=== PATIENT | female | born 1985 | race Caucasian/White ===

== ENCOUNTER 2016-09-22 11:15 | Emergency (ER) | payer OTHER ==
--- NOTE | 2016-09-22 13:59 | ED ORDER SUMMARY ---
..... Patient: GARLAND FLETCHER OrderSheet [facility] VisitID: [id number] [address] [place] [address] 30y, F Registration Date/Time: 09/22/2016 ORDER SHEET Weight: 85.7 kg (stated) Allergies: No Known Drug Allergy GENERAL ORDERS: CBC w Diff Urgent (11:55 09/22/2016 DDean R.N. per protocol) (Ack 11:57 Melodie) (12:15 DDean R.N.) BMP Urgent (11:55 09/22/2016 DDean R.N. per protocol) (Ack 11:57 Melodie) (12:01 Arnold WILSON) (Cancelled: Other12:01 Arnold WILSON) PT with INR Urgent (11:55 09/22/2016 DDean R.N. per protocol) (Ack 11:57 Melodie) (12:15 DDean R.N.) CMP Urgent (12:09/22/2016 Arnold WILSON) (Ack 12:22 Melodie) (12:24 DDean R.N.) PTT Urgent (12:09/22/2016 Arnold WILSON) (Ack 12:22 Melodie) (12:24 DDean R.N.) US Venous Left (She is 5 days ) Urgent (12:11 09/22/2016 Arnold WILSON) (Ack 12:22 Melodie) (13:43 DDean R.N.) MEDICATION ORDERS: IV FLUIDS: IV Saline Lock (11:55 09/22/2016 DDean R.N. per protocol) (11:55 DDean R.N.) ORDER SHEET NOTES: [Electronically signed by Nivia Bolden R.N. (15:15 09/22/2016)] [Electronically signed by Kevin Marin MD (17:09 09/23/2016)] [Electronically locked/signed by Nivia Bolden R.N. (15:15 09/22/2016)]
--- NOTE | 2016-09-22 13:59 | ED ORDER SUMMARY ---
..... Patient: GARLAND FLETCHER OrderSheet [facility] VisitID: [id number] [address] [place] [address] 30y, F Registration Date/Time: 09/22/2016 ORDER SHEET Weight: 85.7 kg (stated) Allergies: No Known Drug Allergy GENERAL ORDERS: CBC w Diff Urgent (11:55 09/22/2016 DDean R.N. per protocol) (Ack 11:57 Melodie) (12:15 DDean R.N.) BMP Urgent (11:55 09/22/2016 DDean R.N. per protocol) (Ack 11:57 Melodie) (12:01 Arnold WILSON) (Cancelled: Other12:01 Arnold WILSON) PT with INR Urgent (11:55 09/22/2016 DDean R.N. per protocol) (Ack 11:57 Melodie) (12:15 DDean R.N.) CMP Urgent (12:09/22/2016 Arnold WILSON) (Ack 12:22 Melodie) (12:24 DDean R.N.) PTT Urgent (12:09/22/2016 Arnold WILOSN) (Ack 12:22 Melodie) (12:24 DDean R.N.) US Venous Left (She is 5 days ) Urgent (12:11 09/22/2016 Arnold WILSON) (Ack 12:22 Melodie) (13:43 DDean R.N.) MEDICATION ORDERS: IV FLUIDS: IV Saline Lock (11:55 09/22/2016 DDean R.N. per protocol) (11:55 DDean R.N.) ORDER SHEET NOTES: [Electronically signed by Nivia Bolden R.N. (15:15 09/22/2016)] [Electronically signed by Kevin Marin MD (17:09 09/23/2016)] [Electronically locked/signed by Nivia Bolden R.N. (15:15 09/22/2016)]
--- NOTE | 2016-09-22 13:59 | ED NURSING NOTES ---
Clinical Report - Nurses [facility] [place] [address] 09/22/2016 11:17 Patient: GARLAND FLETCHER TRIAGE Triage time 1122. Acuity: LEVEL 3. Chief Complaint: LEFT LOWER EXTREMITY PAIN and SWELLING. --11:36 Nivia Bolden R.N. 11:22 09/22/16. BP: 139/90. HR: 97. RR: 20. O2 saturation: 97%. Temp: 97.6 F. Pain level now: 11/26. --11:36 Nivia Bolden R.N. Triage time 1122. Chief Complaint: Location of symptoms- (Pt is 6 days pst-). --11:57 Nivia Bolden R.N. Weight: 85.7 kg stated. Height/Length: 64 inches Per Patient. BMI: 32.5. --11:33 Nivia Bolden R.N. Medications Ibuprofen Oral 800 mg, PRN, last dose 0900. Vitamins Oral. --11:33 Nivia Bolden R.N. Allergies No Known Drug Allergy. --11:32 Nivia Bolden R.N. History Arrived by private vehicle. Historian: patient. Accompanied by (brother in law). Primary physician ([facility]). No injury occurred. This occurred yesterday. She has had swelling and trouble walking. PAST MEDICAL HX: Negative. Last normal menstrual period- 6 days post- . 3. Para 3. Abortions 0. SURGERY HX: No history of previous surgery. SOCIAL HX: Never smoker. No alcohol use or drug use. --11:36 Nivia Bolden R.N. ( pt also states that she had chills this am). --11:54 Nivia Bolden R.N. ( also c/o swelling to hands and feel x 3 weeks). --11:57 Nivia Bolden R.N. PROBLEMS: no known problems. ADDITIONAL SURGERIES: no known surgeries. Interventions ID band on patient. To treatment room. --11:36 Nivia Bolden R.N. PHYSICAL ASSESSMENT 11:22. Ambulatory to room. Patient gowned. GENERAL / NEURO / PSYCH: Oriented X 4. Appears in no acute distress. Appears anxious. EXTREMITIES: Left knee: tenderness and swelling. Left leg. SKIN: Skin is warm and dry. --11:37 Nivia Bolden R.N. NURSING PROGRESS NOTES 11:22. Patient gowned. Reassurance given. Patient identifiers checked. Call light placed in reach. Side rails up. Bed placed in lowest position. Patient ready for evaluation- chart flagged. --11:36 Nivia Bolden R.N. 11:45 09/22/2016 Site #1 started via IV in the right hand with an 22g angiocath, with aseptic technique and good blood return; one attempt. Blood drawn: rainbow set. Labeled in the presence of the patient and sent to the lab. Saline lock flushed with saline. --11:53 Nivia Bolden R.N. 12:30 US at bedside to do exam. --13:44 Nivia Bolden R.N. 13:15 attempting to locate PCP name and number foe ERMD contact. --13:46 Nivia Bolden R.N. ( Scheduled appt. for pt. on September 29 at 0245 at [facility] --14:00 Asya Rizzo, ALEXANDR Tech1 14:05 09/22/2016 Site #1 removed upon discharge. Bandaid applied. --14:13 Nivia Bolden R.N. 14:05 09/22/2016 IV Saline Lock Drip IV Discontinued: bag #1 STOPPED upon discharge. Total amount infused: 0 mL. IV patency established. IV site checked: no pain, redness, or swelling. IV flushed thoroughly. --14:13 Nivia Bolden R.N. DISPOSITION / DISCHARGE Condition at departure: stable. Ability to learn limited by language barrier. Discharge instructions provided and reviewed with the patient. Reviewed medication(s) (motrin, tylneol #3). Reviewed referrals (aappt at Dr. office next thursday at 2:45). Patient and ada accommodation consultant verbalized understanding. Written instructions provided in Samoan and Serbian. The patient was discharged home and accompanied by family. She left the Emergency Department ambulatory and via private vehicle. Family member driving. --14:12 Nivia Bolden R.N. 14:10 09/22/16. BP: 122/78. HR: 74. RR: 18. O2 saturation: 97%. Temp: deferred. Pain level now: 11/26. --14:12 Nivia Bolden R.N. Locked/Released at 09/22/2016 15:15 by Nivia Bolden R.N.
--- NOTE | 2016-09-22 13:59 | ED CLINICAL REPORT ---
Clinical Report - Physicians/Mid Levels [facility] [address] [place] [address] 09/22/2016 11:17 Patient: GARLAND FLETCHER Time Seen: 12:00. Arrived- By private vehicle. Historian- patient (She is Grenadian-speaking only. She is accompanied by her [id number] who is fluent in Nauruan and Grenadian. She does not want a phone traffic signal mechanic, she would prefer to have him translate). HISTORY OF PRESENT ILLNESS Chief Complaint: LOWER EXTREMITY PAIN and SWELLING. This started yesterday and is still present. It was abrupt in onset and has been constant. Severity is described as being moderate. The quality is noted to be aching and "pain". Symptoms located in the area of the left thigh. The patient has had mild redness with red streaking. She has had swelling. She has had difficulty walking. ( the patient is a 6 days after a normal spontaneous vaginal delivery. She is breast-feeding.). Patient denies an injury. Similar symptoms previously: None. REVIEW OF SYSTEMS No chills, fever, sweats, calf pain or chest pain. No cough, difficulty breathing, pedal edema, palpitations or abdominal pain. No constipation, diarrhea, nausea, vomiting or urinary problems. All systems otherwise negative, except as recorded above. PAST HISTORY Problems: no known problems. Additional Surgeries: no known surgeries. Medications: Ibuprofen Oral 800 mg, PRN, last dose 0900. Vitamins Oral. Allergies: No Known Drug Allergy. SOCIAL HISTORY Never smoker. No alcohol use or drug use. She lives with spouse. Has good social support. FAMILY HISTORY no family history of pulmonary embolism, DVT or other clotting disorders. ADDITIONAL NOTES The nursing notes have been reviewed. PHYSICAL EXAM Vital Signs: 09/22/2016 11:22 BP: 139/90. HR: 97. RR: 20. O2 saturation: 97%. Temp: 97.6 F. Pain level now: 5/10. Have been reviewed. Appearance: Alert. No acute distress. Eyes: Pupils equal, round and reactive to light. ENT: Pharynx normal. Neck: Normal inspection. Neck supple. CVS: Normal heart rate and rhythm. Heart sounds normal. Respiratory: No respiratory distress. Breath sounds normal. Abdomen: Soft and nontender. No organomegaly. Back: Normal inspection. No CVA tenderness. Skin: Skin intact. Skin warm and dry. Extremities: No upper extremity edema. Left thigh: mild erythema and moderate tenderness. Neurovascular intact distally. No signs of infection involving the lower extremities. No calf tenderness. Neuro: No motor deficit. No sensory deficit. LABS, X-RAYS, AND EKG Lower Extremity Sonography: Lower extremity venous Doppler of the left leg revealed superficial thrombus phlebitis in the mid thigh down to the mid calf. This is 15 cm away from the saphenousfemoral junction. There is no evidence of any deep vein thrombosis. The exam was performed by a nutrition technician. The study was independently viewed by me. I discussed the study with the dental technician apprentice. Laboratory Tests: CBC w Diff: (LEYDA: 09/22/2016 11:45) ( [facility] 09/22/2016 12:05) Final results Test Result Flag Units (Reference) WHITE BLOOD COUNT 11.8 H K/uL (4.5-11.5) RED BLOOD COUNT 3.84 L M/uL (4.00-5.20) HEMOGLOBIN 12.1 gm/dL (12.0-16.0) HEMATOCRIT 35.9 L % (36.0-46.0) MEAN CELL VOLUME 94 fL (80-100) MEAN CORPUSCULAR HGB 32 pg (26-34) MEAN CORPUSCULAR HGB CONC 34 g/dL (31-37) RED CELL DISTRIBUTION WIDTH 14.6 % (11.6-14.8) PLATELET COUNT 362 K/uL (150-400) NEUTROPHIL % 71.1 % (50-75) LYMPH % 21.3 L % (25-40) MONO % 5.7 % (3-14) EOSINOPHIL % 1.5 % (0-4) BASOPHIL % 0.4 % (0-2) PT with INR: (LEYDA: 09/22/2016 11:45) ( [facility] 09/22/2016 12:13) Final results Test Result Flag Units (Reference) INR 0.9 (0.8-1.2) Low Intensity Therapy: INR 1.5-2.0 PT range 18.5-23.1Mod.Intensity Therapy: INR 2.0-3.0 PT range 23.1-31.5High Intensity Therapy: INR 2.5-3.5 PT range 27.4-35.5High Intensity Therapy 2: INR 3.0-4.0 PT range 31.5-39.3 APTT 29 SECONDS (24-34) CMP: (LEYDA: 09/22/2016 11:45) ( Msg[facility]cvd 09/22/2016 12:40) Final results Test Result Flag Units (Reference) GLUCOSE 81 mg/dL (70-110) BUN 14 mg/dL (7-18) CREATININE 0.6 mg/dL (0.6-1.3) Estimated GFR >60 mL/min Estimated GFR- >60 mL/min Note: Persistent reduction over 3 months in eGFR<60 mL/min/1.73 m2 defines CKD. Patients with eGFR values>=60 mL/min/1.73 m2 may also have CKD if evidence ofpersistent proteinuria. Additional information may be foundat www.kidney.org. SODIUM 141 mmol/L (136-145) POTASSIUM 4.0 mmol/L (3.5-5.1) CHLORIDE 107 mmol/L (98-107) CARBON DIOXIDE 25 mmol/L (21-32) CALCIUM 9.1 mg/dL (8.5-10.1) TOTAL PROTEIN 7.3 g/dL (6.4-8.2) ALBUMIN 2.6 L g/dL (3.3-5.0) BILIRUBIN, TOTAL 0.3 mg/dL (0.0-1.0) ALKALINE PHOSPHATASE 714 H U/L (46-116) AST (SGOT) 69 H U/L (15-37) ALT (SGPT) 73 U/L (12-78) . PROGRESS AND PROCEDURES Course of Care: Patient is stable. Discussed case with on-call health care provider, (Emerita at [facility] in [place]). Reviewed test results and need for additional work-up. Agreed upon treatment plan. Health care provider will see patient in office. Patient/family counseled. Old medical records ordered. Old records unavailable. Disposition: Discharged. Condition: stable. CLINICAL IMPRESSION Superficial thrombophlebitis of the left leg associated with the puerperium. INSTRUCTIONS Elevate affected areas above chest level until better. No driving or operating machinery while taking sedating medication. (try to walk as much as possible You have an appointment scheduled at the [facility] in [place] on September 29 at 2:45 PM). Warnings: Further evaluation is necessary. GENERAL WARNINGS: Return or contact your physician immediately if your condition worsens or changes unexpectedly, if not improving as expected, or if other problems arise. Your Current Medications: CONTINUE TAKING THE FOLLOWING MEDICATIONS: Ibuprofen Oral : 800 mg PRN, Last: 0900. Vitamins Oral. Prescription Medications: Tylenol with Codeine #3 (30 mg / 300 mg): take 1 tablet every 4 hours as needed for pain. Dispense fifteen (15). No refills. Substitution is permissible. Understanding of the discharge instructions verbalized by patient and family. Follow-up with: [facility], , , [address] [place] [address], Follow up as scheduled. (Electronically signed by Kevin Marin MD 09/23/2016 17:09)
--- NOTE | 2016-09-22 13:59 | ED NURSING NOTES ---
Clinical Report - Nurses [facility] [place] [address] 09/22/2016 11:17 Patient: GARLAND FLETCHER TRIAGE Triage time 1122. Acuity: LEVEL 3. Chief Complaint: LEFT LOWER EXTREMITY PAIN and SWELLING. --11:36 Nivia Bolden R.N. 11:22 09/22/16. BP: 139/90. HR: 97. RR: 20. O2 saturation: 97%. Temp: 97.6 F. Pain level now: 11/26. --11:36 Nivia Bolden R.N. Triage time 1122. Chief Complaint: Location of symptoms- (Pt is 6 days pst-). --11:57 Nivia Bolden R.N. Weight: 85.7 kg stated. Height/Length: 64 inches Per Patient. BMI: 32.5. --11:33 Nivia Bolden R.N. Medications Ibuprofen Oral 800 mg, PRN, last dose 0900. Vitamins Oral. --11:33 Nivia Bolden R.N. Allergies No Known Drug Allergy. --11:32 Nivia Bolden R.N. History Arrived by private vehicle. Historian: patient. Accompanied by (brother in law). Primary physician ([facility]). No injury occurred. This occurred yesterday. She has had swelling and trouble walking. PAST MEDICAL HX: Negative. Last normal menstrual period- 6 days post- . 3. Para 3. Abortions 0. SURGERY HX: No history of previous surgery. SOCIAL HX: Never smoker. No alcohol use or drug use. --11:36 Nivia Bolden R.N. ( pt also states that she had chills this am). --11:54 Nivia Bolden R.N. ( also c/o swelling to hands and feel x 3 weeks). --11:57 Nivia Bolden R.N. PROBLEMS: no known problems. ADDITIONAL SURGERIES: no known surgeries. Interventions ID band on patient. To treatment room. --11:36 Nivia Bolden R.N. PHYSICAL ASSESSMENT 11:22. Ambulatory to room. Patient gowned. GENERAL / NEURO / PSYCH: Oriented X 4. Appears in no acute distress. Appears anxious. EXTREMITIES: Left knee: tenderness and swelling. Left leg. SKIN: Skin is warm and dry. --11:37 Nivia Bolden R.N. NURSING PROGRESS NOTES 11:22. Patient gowned. Reassurance given. Patient identifiers checked. Call light placed in reach. Side rails up. Bed placed in lowest position. Patient ready for evaluation- chart flagged. --11:36 Nivia Bolden R.N. 11:45 09/22/2016 Site #1 started via IV in the right hand with an 22g angiocath, with aseptic technique and good blood return; one attempt. Blood drawn: rainbow set. Labeled in the presence of the patient and sent to the lab. Saline lock flushed with saline. --11:53 Nivia Bolden R.N. 12:30 US at bedside to do exam. --13:44 Nivia Bolden R.N. 13:15 attempting to locate PCP name and number foe ERMD contact. --13:46 Nivia Bloden R.N. ( Scheduled appt. for pt. on September [address] [facility] --14:00 sAya Rizzo, ALEXANDR Tech1 14:05 09/22/2016 Site #1 removed upon discharge. Bandaid applied. --14:13 Nivia Bolden R.N. 14:05 09/22/2016 IV Saline Lock Drip IV Discontinued: bag #1 STOPPED upon discharge. Total amount infused: 0 mL. IV patency established. IV site checked: no pain, redness, or swelling. IV flushed thoroughly. --14:13 Nivia Bolden R.N. DISPOSITION / DISCHARGE Condition at departure: stable. Ability to learn limited by language barrier. Discharge instructions provided and reviewed with the patient. Reviewed medication(s) (motrin, tylneol #3). Reviewed referrals (aappt at Dr. office next thursday at 2:45). Patient and process consultant verbalized understanding. Written instructions provided in Guamanian and Serbian. The patient was discharged home and accompanied by family. She left the Emergency Department ambulatory and via private vehicle. Family member driving. --14:12 Nivia Bolden R.N. 14:10 09/22/16. BP: 122/78. HR: 74. RR: 18. O2 saturation: 97%. Temp: deferred. Pain level now: 11/26. --14:12 Nivia Bolden R.N. Locked/Released at 09/22/2016 15:15 by Nivia Bolden R.N.
--- NOTE | 2016-09-22 13:59 | ED CLINICAL REPORT ---
Clinical Report - Physicians/Mid Levels [facility] [address] [place] [address] 09/22/2016 11:17 Patient: GARLAND FLETCHER Time Seen: 12:00. Arrived- By private vehicle. Historian- patient (She is Malaysian-speaking only. She is accompanied by her [id number] who is fluent in Haitian and Malaysian. She does not want a phone fruit cutter, she would prefer to have him translate). HISTORY OF PRESENT ILLNESS Chief Complaint: LOWER EXTREMITY PAIN and SWELLING. This started yesterday and is still present. It was abrupt in onset and has been constant. Severity is described as being moderate. The quality is noted to be aching and "pain". Symptoms located in the area of the left thigh. The patient has had mild redness with red streaking. She has had swelling. She has had difficulty walking. ( the patient is a 6 days after a normal spontaneous vaginal delivery. She is breast-feeding.). Patient denies an injury. Similar symptoms previously: None. REVIEW OF SYSTEMS No chills, fever, sweats, calf pain or chest pain. No cough, difficulty breathing, pedal edema, palpitations or abdominal pain. No constipation, diarrhea, nausea, vomiting or urinary problems. All systems otherwise negative, except as recorded above. PAST HISTORY Problems: no known problems. Additional Surgeries: no known surgeries. Medications: Ibuprofen Oral 800 mg, PRN, last dose 0900. Vitamins Oral. Allergies: No Known Drug Allergy. SOCIAL HISTORY Never smoker. No alcohol use or drug use. She lives with spouse. Has good social support. FAMILY HISTORY no family history of pulmonary embolism, DVT or other clotting disorders. ADDITIONAL NOTES The nursing notes have been reviewed. PHYSICAL EXAM Vital Signs: 09/22/2016 11:22 BP: 139/90. HR: 97. RR: 20. O2 saturation: 97%. Temp: 97.6 F. Pain level now: 5/10. Have been reviewed. Appearance: Alert. No acute distress. Eyes: Pupils equal, round and reactive to light. ENT: Pharynx normal. Neck: Normal inspection. Neck supple. CVS: Normal heart rate and rhythm. Heart sounds normal. Respiratory: No respiratory distress. Breath sounds normal. Abdomen: Soft and nontender. No organomegaly. Back: Normal inspection. No CVA tenderness. Skin: Skin intact. Skin warm and dry. Extremities: No upper extremity edema. Left thigh: mild erythema and moderate tenderness. Neurovascular intact distally. No signs of infection involving the lower extremities. No calf tenderness. Neuro: No motor deficit. No sensory deficit. LABS, X-RAYS, AND EKG Lower Extremity Sonography: Lower extremity venous Doppler of the left leg revealed superficial thrombus phlebitis in the mid thigh down to the mid calf. This is 15 cm away from the saphenousfemoral junction. There is no evidence of any deep vein thrombosis. The exam was performed by a histology technician. The study was independently viewed by me. I discussed the study with the environmental services floor tech. Laboratory Tests: CBC w Diff: (LEYDA: 09/22/2016 11:45) ( [facility] 09/22/2016 12:05) Final results Test Result Flag Units (Reference) WHITE BLOOD COUNT 11.8 H K/uL (4.5-11.5) RED BLOOD COUNT 3.84 L M/uL (4.00-5.20) HEMOGLOBIN 12.1 gm/dL (12.0-16.0) HEMATOCRIT 35.9 L % (36.0-46.0) MEAN CELL VOLUME 94 fL (80-100) MEAN CORPUSCULAR HGB 32 pg (26-34) MEAN CORPUSCULAR HGB CONC 34 g/dL (31-37) RED CELL DISTRIBUTION WIDTH 14.6 % (11.6-14.8) PLATELET COUNT 362 K/uL (150-400) NEUTROPHIL % 71.1 % (50-75) LYMPH % 21.3 L % (25-40) MONO % 5.7 % (3-14) EOSINOPHIL % 1.5 % (0-4) BASOPHIL % 0.4 % (0-2) PT with INR: (LEYDA: 09/22/2016 11:45) ( [facility] [place] 12:13) Final results Test Result Flag Units (Reference) INR 0.9 (0.8-1.2) Low Intensity Therapy: INR 1.5-2.0 PT range 18.5-23.1Mod.Intensity Therapy: INR 2.0-3.0 PT range 23.1-31.5High Intensity Therapy: INR 2.5-3.5 PT range 27.4-35.5High Intensity Therapy 2: INR 3.0-4.0 PT range 31.5-39.3 APTT 29 SECONDS (24-34) CMP: (LEYDA: 09/22/2016 11:45) ( Msg[facility]cvd 09/22/2016 12:40) Final results Test Result Flag Units (Reference) GLUCOSE 81 mg/dL (70-110) BUN 14 mg/dL (7-18) CREATININE 0.6 mg/dL (0.6-1.3) Estimated GFR >60 mL/min Estimated GFR- >60 mL/min Note: Persistent reduction over 3 months in eGFR<60 mL/min/1.73 m2 defines CKD. Patients with eGFR values>=60 mL/min/1.73 m2 may also have CKD if evidence ofpersistent proteinuria. Additional information may be foundat www.kidney.org. SODIUM 141 mmol/L (136-145) POTASSIUM 4.0 mmol/L (3.5-5.1) CHLORIDE 107 mmol/L (98-107) CARBON DIOXIDE 25 mmol/L (21-32) CALCIUM 9.1 mg/dL (8.5-10.1) TOTAL PROTEIN 7.3 g/dL (6.4-8.2) ALBUMIN 2.6 L g/dL (3.3-5.0) BILIRUBIN, TOTAL 0.3 mg/dL (0.0-1.0) ALKALINE PHOSPHATASE 714 H U/L (46-116) AST (SGOT) 69 H U/L (15-37) ALT (SGPT) 73 U/L (12-78) . PROGRESS AND PROCEDURES Course of Care: Patient is stable. Discussed case with on-call health care provider, (Emerita at [facility] in [place]). Reviewed test results and need for additional work-up. Agreed upon treatment plan. Health care provider will see patient in office. Patient/family counseled. Old medical records ordered. Old records unavailable. Disposition: Discharged. Condition: stable. CLINICAL IMPRESSION Superficial thrombophlebitis of the left leg associated with the puerperium. INSTRUCTIONS Elevate affected areas above chest level until better. No driving or operating machinery while taking sedating medication. (try to walk as much as possible You have an appointment scheduled at the [facility] in [place] on September 29 at 2:45 PM). Warnings: Further evaluation is necessary. GENERAL WARNINGS: Return or contact your physician immediately if your condition worsens or changes unexpectedly, if not improving as expected, or if other problems arise. Your Current Medications: CONTINUE TAKING THE FOLLOWING MEDICATIONS: Ibuprofen Oral : 800 mg PRN, Last: 0900. Vitamins Oral. Prescription Medications: Tylenol with Codeine #3 (30 mg / 300 mg): take 1 tablet every 4 hours as needed for pain. Dispense fifteen (15). No refills. Substitution is permissible. Understanding of the discharge instructions verbalized by patient and family. Follow-up with: [facility], , , [address] [place] [address], Follow up as scheduled. (Electronically signed by Kevin Marin MD 09/23/2016 17:09)
--- NOTE | 2016-09-22 15:00 | DIAGNOSTIC IMAGING REPORT ---
PROCEDURE: US VENOUS - LEFT EXT INDICATION: SWELLING, medial thigh and calf. TECHNIQUE: Duplex sonography of the deep venous system in the left lower extremity was performed. Compression and augmentation techniques were used. COMPARISON: None. FINDINGS: Each interrogated segment of deep vein from the common femoral vein into the calf veins demonstrates normal compressibility, augmentation and/or color Doppler flow without filling defect. Beginning in the mid thigh greater saphenous vein extending into the calf, there is occlusive thrombus for a segment approximately 25-30 cm in length. In the distal thigh, there is expansile filling defect within the vein. In the mid thigh, there is no detectable venous flow. The distal greater saphenous vein in the mid calf is compressible. IMPRESSION: 1. No deep venous thrombosis in the left lower extremity. 2. 25-30 cm segment of occlusive superficial thrombophlebitis in the greater saphenous vein. Proximal most extent of thrombophlebitis is mid thigh. 3. The findings conveyed by the technologist to the emergency room provider.
--- NOTE | 2016-09-23 17:09 | ED MED RECONCILIATION SUMMARY ---
Patient: GARLAND FLETCHER Medication Reconciliation Report [facility] VisitID: [id number] [address] [place] [address] 30y, F Registration Date/Time: 09/22/2016 Weight: 85.7 kg Height/Length: 64 in. BMI: 32.5 ALLERGIES: No Known Drug Allergy The patient's Home Medications are listed below: CONTINUE TAKING THE FOLLOWING MEDICATIONS: Ibuprofen Oral 800 mg, PRN, last dose: 0900 Vitamins Oral The source(s) of the original Home Medication information: Not obtained. The following Medications were given to the patient in the Emergency Department: None. The following Medications were prescribed to the patient: Tylenol with Codeine #3 (30 mg / 300 mg): take 1 tablet every 4 hours as needed for pain. Dispense fifteen (15). No refills. Substitution is permissible. -- Kevin Marin MD
--- NOTE | 2016-09-23 17:09 | ED MAR SUMMARY ---
..... Medication Administration Record [facility] [address] [place], [place] [id number] Patient: GARLAND FLETCHER Visit ID: [id number] 30y, F Weight: 85.7 kg Height/Length: 64 in BMI: 32.5 ALLERGIES: No Known Drug Allergy
--- NOTE | 2016-09-23 17:09 | ED DISCHARGE INSTRUCTIONS ---
Patient: GARLAND FLETCHER General Instructions [facility] VisitID: [id number] [place] [address] 30y, F Registration Date/Time: 09/22/2016 Superficial thrombophlebitis of the left leg associated with the puerperium. INSTRUCTIONS Elevate affected areas above chest level until better. No driving or operating machinery while taking sedating medication. (try to walk as much as possible You have an appointment scheduled at the [facility] in [place] on September 29 at 2:45 PM). Warnings: Further evaluation is necessary. GENERAL WARNINGS: Return or contact your physician immediately if your condition worsens or changes unexpectedly, if not improving as expected, or if other problems arise. Your Current Medications: CONTINUE TAKING THE FOLLOWING MEDICATIONS: Ibuprofen Oral : 800 mg PRN, Last: 0900. Vitamins Oral. Prescription Medications: Tylenol with Codeine #3 (30 mg / 300 mg): take 1 tablet every 4 hours as needed for pain. Dispense fifteen (15). No refills. Substitution is permissible. Understanding of the discharge instructions verbalized by patient and family. Follow-up with: [facility], , , [address] [place] [address], Follow up as scheduled. ADDITIONAL INFORMATION Phlebitis, Superficial Phlebitis is the name for inflammation of a vein. This results in local redness, swelling, warmth and pain. This may occur after medicine has been given by vein as a result of the irritating effect of the medicine. It can also occur as a result of IV drug use. Superficial phlebitis involves only those veins close to the surface. There is no danger of a clot traveling to the lung or brain, unlike deep blood clots of the legs. Therefore, this condition can be safely treated at home. Home Care: Heat is helpful. Use a heating pad or soak the inflamed part in a hot tub for 10 minutes at a time. You may use ibuprofen (Motrin, Advil) to control pain, unless another medicine was prescribed. [ NOTE : If you have chronic kidney disease or ever had a stomach ulcer or GI bleeding, talk with your doctor before using these medicines.] If Your Leg Is Affected: Unless pain is severe, you may walk. It is important to sit often and elevate the leg. Avoid prolonged sitting or standing. Use support hose or an elastic wrap to compress the leg and reduce swelling. If Your Arm Is Affected: Elevate the arm. If you were given a sling, take your arm out from time to time and move it around to increase the circulation. Use an elastic wrap if there is a lot of swelling. Follow Up with your doctor as advised. Get Prompt Medical Attention if any of the following occur: Shortness of breath or painful breathing Chest pain or cough Fever of 100.4F (38C) or higher, or as directed by your healthcare provider Increasing swelling or pain Spreading redness Acetaminophen, Codeine Phosphate Oral tablet What is this medicine? ACETAMINOPHEN; CODEINE (a set a TORRES angela fen; KOE yahir) is a pain reliever. It is used to treat mild to moderate pain. How should I use this medicine? Take this medicine by mouth with a full glass of water. Follow the directions on the prescription label. If the medicine upsets your stomach, take the medicine with food or milk. Do not take more medicine than you are told to take. Talk to your external relations manager regarding the use of this medicine in children. Special care may be needed. What side effects may I notice from receiving this medicine? Side effects that you should report to your doctor or health director of primary care as soon as possible: allergic reactions like skin rash, itching or hives, swelling of the face, lips, or tongue breathing difficulties, wheezing confusion light headedness or fainting spells severe stomach pain yellowing of the skin or the whites of the eyes Side effects that usually do not require medical attention (report to your doctor or health director of primary care if they continue or are bothersome): dizziness drowsiness nausea, vomiting What may interact with this medicine? alcohol antihistamines benztropine drugs for bladder problems like solifenacin, trospium, oxybutynin, tolterodine, hycosamine, and methscopolamine drugs for breathing problems like ipratropium and tiotropium drugs for certain stomach or intestine problems like propantheline, homatropine methylbromide, glycopyrrolate, atropine, belladonna, and dicyclomine medicines for depression, anxiety, or psychotic disturbances medicines for sleep muscle relaxants naltrexone narcotic medicines (opiates) for pain phenothiazines like perphenazine, thioridazine, chlorpromazine, mesoridazine, fluphenazine, prochlorperazine, promazine, trifluoperazine scopolamine tramadol trihexyphenidyl What if I miss a dose? If you miss a dose, take it as soon as you can. If it is almost time for your next dose, take only that dose. Do not take double or extra doses. Where should I keep my medicine? Keep out of the reach of children. This medicine can be abused. Keep your medicine in a safe place to protect it from theft. Do not share this medicine with anyone. Selling or giving away this medicine is dangerous and against the law. Store at room temperature between 15 and 30 degrees C (59 and 86 degrees F). Protect from light. Keep container tightly closed. Throw away any unused medicine after the expiration date. Discard unused medicine and used packaging carefully. Pets and children can be harmed if they find used or lost packages. What should I tell my health care provider before I take this medicine? They need to know if you have any of these conditions: brain tumor Crohn's disease, inflammatory bowel disease, or ulcerative colitis drink more than 3 alcohol containing drinks per day drug abuse or addiction head injury heart or circulation problems kidney disease or problems going to the bathroom liver disease lung disease, asthma, or breathing problems an unusual or allergic reaction to acetaminophen, codeine, salicylates, other opioid analgesics, other medicines, foods, dyes, or preservatives or trying to get breast-feeding What should I watch for while using this medicine? Tell your doctor or health director of primary care if your pain does not go away, if it gets worse, or if you have new or a different type of pain. You may develop tolerance to the medication. Tolerance means that you will need a higher dose of the medication for pain relief. Tolerance is normal and is expected if you take the medicine for a long time. Do not suddenly stop taking your medicine because you may develop a severe reaction. Your body becomes used to the medicine. This does NOT mean you are addicted. Addiction is a behavior related to getting and using a drug for a non medical reason. If you have pain, you have a medical reason to take pain medicine. Your doctor will tell you how much medicine to take. If your doctor wants you to stop the medicine, the dose will be slowly lowered over time to avoid any side effects. You may get drowsy or dizzy. Do not drive, use machinery, or do anything that needs mental alertness until you know how this medicine affects you. Do not stand or sit up quickly, especially if you are an older patient. This reduces the risk of dizzy or fainting spells. Alcohol may interfere with the effect of this medicine. Avoid alcoholic drinks. There are different types of narcotic medicines (opiates) for pain. If you take more than one type at the same time, you may have more side effects. Give your health care provider a list of all medicines you use. Your doctor will tell you how much medicine to take. Do not take more medicine than directed. Call emergency for help if you have problems breathing. The medicine will cause constipation. Try to have a bowel movement at least every 2 to 3 days. If you do not have a bowel movement for 3 days, call your doctor or health director of primary care. Do not take Tylenol (acetaminophen) or medicines that have acetaminophen with this medicine. Too much acetaminophen can be very dangerous. Many nonprescription medicines contain acetaminophen. Always read the labels carefully to avoid taking more acetaminophen. Immediately call your physician or get emergency help if you are breast-feeding and your baby is sleepier than usual, is limp, or has difficulty or breathing. You have been given the following additional information: Thrombophlebitis, Superficial Acetaminophen, Codeine Phosphate Oral tablet No driving or operating machinery while taking sedating medication. (Electronically signed by Kevin Marin MD 09/23/2016 17:09)
--- NOTE | 2016-09-23 17:09 | ED MAR SUMMARY ---
..... Medication Administration Record [facility] [address] [place], [place] [id number] Patient: GARLAND FLETCHER Visit ID: [id number] 30y, F Weight: 85.7 kg Height/Length: 64 in BMI: 32.5 ALLERGIES: No Known Drug Allergy
--- NOTE | 2016-09-23 17:09 | ED DISCHARGE INSTRUCTIONS ---
Patient: GARLAND FLETCHER General Instructions [facility] VisitID: [id number] [place] [address] 30y, F Registration Date/Time: 09/22/2016 Superficial thrombophlebitis of the left leg associated with the puerperium. INSTRUCTIONS Elevate affected areas above chest level until better. No driving or operating machinery while taking sedating medication. (try to walk as much as possible You have an appointment scheduled at the [facility] in [place] on September 29 at 2:45 PM). Warnings: Further evaluation is necessary. GENERAL WARNINGS: Return or contact your physician immediately if your condition worsens or changes unexpectedly, if not improving as expected, or if other problems arise. Your Current Medications: CONTINUE TAKING THE FOLLOWING MEDICATIONS: Ibuprofen Oral : 800 mg PRN, Last: 0900. Vitamins Oral. Prescription Medications: Tylenol with Codeine #3 (30 mg / 300 mg): take 1 tablet every 4 hours as needed for pain. Dispense fifteen (15). No refills. Substitution is permissible. Understanding of the discharge instructions verbalized by patient and family. Follow-up with: [facility], , , [address] [place] [address], Follow up as scheduled. ADDITIONAL INFORMATION Phlebitis, Superficial Phlebitis is the name for inflammation of a vein. This results in local redness, swelling, warmth and pain. This may occur after medicine has been given by vein as a result of the irritating effect of the medicine. It can also occur as a result of IV drug use. Superficial phlebitis involves only those veins close to the surface. There is no danger of a clot traveling to the lung or brain, unlike deep blood clots of the legs. Therefore, this condition can be safely treated at home. Home Care: Heat is helpful. Use a heating pad or soak the inflamed part in a hot tub for 10 minutes at a time. You may use ibuprofen (Motrin, Advil) to control pain, unless another medicine was prescribed. [ NOTE : If you have chronic kidney disease or ever had a stomach ulcer or GI bleeding, talk with your doctor before using these medicines.] If Your Leg Is Affected: Unless pain is severe, you may walk. It is important to sit often and elevate the leg. Avoid prolonged sitting or standing. Use support hose or an elastic wrap to compress the leg and reduce swelling. If Your Arm Is Affected: Elevate the arm. If you were given a sling, take your arm out from time to time and move it around to increase the circulation. Use an elastic wrap if there is a lot of swelling. Follow Up with your doctor as advised. Get Prompt Medical Attention if any of the following occur: Shortness of breath or painful breathing Chest pain or cough Fever of 100.4F (38C) or higher, or as directed by your healthcare provider Increasing swelling or pain Spreading redness Acetaminophen, Codeine Phosphate Oral tablet What is this medicine? ACETAMINOPHEN; CODEINE (a set a TORRES angela fen; KOE yahir) is a pain reliever. It is used to treat mild to moderate pain. How should I use this medicine? Take this medicine by mouth with a full glass of water. Follow the directions on the prescription label. If the medicine upsets your stomach, take the medicine with food or milk. Do not take more medicine than you are told to take. Talk to your hairspring truing inspector regarding the use of this medicine in children. Special care may be needed. What side effects may I notice from receiving this medicine? Side effects that you should report to your doctor or health child day care provider as soon as possible: allergic reactions like skin rash, itching or hives, swelling of the face, lips, or tongue breathing difficulties, wheezing confusion light headedness or fainting spells severe stomach pain yellowing of the skin or the whites of the eyes Side effects that usually do not require medical attention (report to your doctor or health child day care provider if they continue or are bothersome): dizziness drowsiness nausea, vomiting What may interact with this medicine? alcohol antihistamines benztropine drugs for bladder problems like solifenacin, trospium, oxybutynin, tolterodine, hycosamine, and methscopolamine drugs for breathing problems like ipratropium and tiotropium drugs for certain stomach or intestine problems like propantheline, homatropine methylbromide, glycopyrrolate, atropine, belladonna, and dicyclomine medicines for depression, anxiety, or psychotic disturbances medicines for sleep muscle relaxants naltrexone narcotic medicines (opiates) for pain phenothiazines like perphenazine, thioridazine, chlorpromazine, mesoridazine, fluphenazine, prochlorperazine, promazine, trifluoperazine scopolamine tramadol trihexyphenidyl What if I miss a dose? If you miss a dose, take it as soon as you can. If it is almost time for your next dose, take only that dose. Do not take double or extra doses. Where should I keep my medicine? Keep out of the reach of children. This medicine can be abused. Keep your medicine in a safe place to protect it from theft. Do not share this medicine with anyone. Selling or giving away this medicine is dangerous and against the law. Store at room temperature between 15 and 30 degrees C (59 and 86 degrees F). Protect from light. Keep container tightly closed. Throw away any unused medicine after the expiration date. Discard unused medicine and used packaging carefully. Pets and children can be harmed if they find used or lost packages. What should I tell my health care provider before I take this medicine? They need to know if you have any of these conditions: brain tumor Crohn's disease, inflammatory bowel disease, or ulcerative colitis drink more than 3 alcohol containing drinks per day drug abuse or addiction head injury heart or circulation problems kidney disease or problems going to the bathroom liver disease lung disease, asthma, or breathing problems an unusual or allergic reaction to acetaminophen, codeine, salicylates, other opioid analgesics, other medicines, foods, dyes, or preservatives or trying to get breast-feeding What should I watch for while using this medicine? Tell your doctor or health child day care provider if your pain does not go away, if it gets worse, or if you have new or a different type of pain. You may develop tolerance to the medication. Tolerance means that you will need a higher dose of the medication for pain relief. Tolerance is normal and is expected if you take the medicine for a long time. Do not suddenly stop taking your medicine because you may develop a severe reaction. Your body becomes used to the medicine. This does NOT mean you are addicted. Addiction is a behavior related to getting and using a drug for a non medical reason. If you have pain, you have a medical reason to take pain medicine. Your doctor will tell you how much medicine to take. If your doctor wants you to stop the medicine, the dose will be slowly lowered over time to avoid any side effects. You may get drowsy or dizzy. Do not drive, use machinery, or do anything that needs mental alertness until you know how this medicine affects you. Do not stand or sit up quickly, especially if you are an older patient. This reduces the risk of dizzy or fainting spells. Alcohol may interfere with the effect of this medicine. Avoid alcoholic drinks. There are different types of narcotic medicines (opiates) for pain. If you take more than one type at the same time, you may have more side effects. Give your health care provider a list of all medicines you use. Your doctor will tell you how much medicine to take. Do not take more medicine than directed. Call emergency for help if you have problems breathing. The medicine will cause constipation. Try to have a bowel movement at least every 2 to 3 days. If you do not have a bowel movement for 3 days, call your doctor or health child day care provider. Do not take Tylenol (acetaminophen) or medicines that have acetaminophen with this medicine. Too much acetaminophen can be very dangerous. Many nonprescription medicines contain acetaminophen. Always read the labels carefully to avoid taking more acetaminophen. Immediately call your physician or get emergency help if you are breast-feeding and your baby is sleepier than usual, is limp, or has difficulty or breathing. You have been given the following additional information: Thrombophlebitis, Superficial Acetaminophen, Codeine Phosphate Oral tablet No driving or operating machinery while taking sedating medication. (Electronically signed by Kevin Marin MD 09/23/2016 17:09)
--- NOTE | 2016-09-23 17:09 | ED MED RECONCILIATION SUMMARY ---
Patient: GARLAND FLETCHER Medication Reconciliation Report [facility] VisitID: [id number] [address] [place] [address] 30y, F Registration Date/Time: 09/22/2016 Weight: 85.7 kg Height/Length: 64 in. BMI: 32.5 ALLERGIES: No Known Drug Allergy The patient's Home Medications are listed below: CONTINUE TAKING THE FOLLOWING MEDICATIONS: Ibuprofen Oral 800 mg, PRN, last dose: 0900 Vitamins Oral The source(s) of the original Home Medication information: Not obtained. The following Medications were given to the patient in the Emergency Department: None. The following Medications were prescribed to the patient: Tylenol with Codeine #3 (30 mg / 300 mg): take 1 tablet every 4 hours as needed for pain. Dispense fifteen (15). No refills. Substitution is permissible. -- Kevin Marin MD
== END 2016-09-22 14:20 | disposition home or self-care (01) ==
LOC: ED SRH 11:15
DX: O87.0 Superficial thrombophlebitis in the puerperium (principal)